=== PATIENT | male | born 1960 | race Caucasian/White ===

== ENCOUNTER 2019-06-19 09:26 | Day surgery (SDC) | payer OTHER, SELFPAY ==
[2019-06-15 13:14] VITALS: BMI 33.4
[2019-06-19] VITALS (8 sets, daily range): BP systolic 101–151; BP diastolic 64–87; PULSE 74–78; RESP 12–14; TEMP 36.9–37.2; O2SAT 92–97; BMI 31.6
--- NOTE | 2019-06-19 | DI.RAD.S_ITS ---
PROCEDURE: XR LUMBAR SPINE 2-3V INDICATIONS: L4-5 DISCECTOMY TECHNIQUE: 2 intraoperative fluoroscopic views of the lumbar spine were acquired. COMPARISON: None. FINDINGS: Intraoperative fluoroscopic images of the lower lumbar spine shows surgical instrument placed posteriorly at L4-5 level. IMPRESSION: Fluoroscopy guidance was provided intraoperatively for L4-5 discectomy. Dictated by: Bret Velazquez M.D. on 06/19/2019 at 16:56 Approved by: Bret Velazquez M.D. on 06/19/2019 at 17:00
--- NOTE | 2019-06-19 12:05 | PM.PREOP ---
Pre-operative Note Interval Note History & Physical reviewed/Exam performed by Physician: Yes Changes to H&P: No
--- NOTE | 2019-06-19 12:05 | PM.HP.1 ---
History of Present Illness Date Patient Seen: 06/19/19 Time Patient Seen: 12:06 Chief complaint: [id number] Narrative: 58-year-old male with severe back and left leg pain. Symptoms started in January when he was unloading some wood and have been increasing since. Pain became excruciating about 4-6 weeks ago. He is only able to lay down on his right side. The back pain is worse at rest but whenever he tries to stand the leg pain is severe. He has been managing this with Percocet and Valium and Flexeril. He had originally been scheduled for surgery a few weeks ago but his BUN and creatinine had doubled and his blood pressure medication was changed and it returned back to normal. He does have a history of a L5-S1 laminectomy and fusion when he was 18. Patient History Medical History Arthritis (Acute) Chronic kidney disease (Acute) Concussion (Acute) Diabetes (Acute) GERD (gastroesophageal reflux disease) (Acute) Gout (Acute) HLD (hyperlipidemia) (Acute) HTN (hypertension) (Acute) Sciatica (Acute) Sleep apnea (Acute) Surgical History History of lumbar laminectomy (Acute ~1978) Hx of cholecystectomy (Acute ~2013) Hx of tonsillectomy (Acute) Social History household members: spouse Smoking Status: Unknown if ever smoked Family & Social History Social History: household members spouse Tobacco & Substance use: Smoking Status Unknown if ever smoked Substance Use Type does not use Meds Home Medications Medication Instructions Recorded Confirmed Type allopurinol 300 mg PO DAILY 06/15/19 06/19/19 History aspirin 81 mg PO DAILY 06/15/19 06/19/19 History atenolol 50 mg PO DAILY 06/15/19 06/19/19 History cyclobenzaprine 10 mg PO TID PRN 06/15/19 06/19/19 History furosemide 20 mg PO DAILY 06/15/19 06/19/19 History gabapentin [Neurontin] 900 mg PO TID 06/15/19 06/19/19 History glimepiride 2 mg PO QPM 06/15/19 06/19/19 History wmrifb-iwvakipr-bqslwdd [Zenpep] 1 cap PO TID 06/15/19 06/19/19 History lisinopril 5 mg PO DAILY 06/15/19 06/19/19 History metformin 1,000 mg PO BID 06/15/19 06/19/19 History omeprazole 20 mg PO BID 06/15/19 06/19/19 History semaglutide [Ozempic] 1 mg SUBCUT QWEEK 06/15/19 06/19/19 History simvastatin 10 mg PO QPM 06/15/19 06/19/19 History colchicine [Colcrys] 0.6 mg PO DAILY PRN 06/19/19 06/19/19 History diazepam 5 mg PO BEDTIME 06/19/19 06/19/19 History loperamide-simethicone [Imodium 2 tab PO BID 06/19/19 06/19/19 History Multi-Symptom Relief] uzouhtigdqdf-rdvj-kpfnh acid 1 tab PO DAILY 06/19/19 06/19/19 History [Multi-Day with Iron] oxycodone-acetaminophen [Percocet] 1 tab PO Q4-6H PRN 06/19/19 06/19/19 History turmeric root extract 500 mg PO DAILY 06/19/19 06/19/19 History Allergies Allergy/AdvReac Type Severity Reaction Status Date / Time No Known Drug Allergies Allergy Verified 06/15/19 13:21 Review of Systems Cardiovascular Cardiovascular: Denies chest pain Respiratory Respiratory: Denies cough Exam Vital Signs (past 8 hours): - 06/19/19 10:31 Temperature 98.4 F Pulse Rate 75 Respiratory Rate 12 Blood Pressure 151/87 H Pulse Oximetry 93 Oxygen Delivery Method Room Air Const Orientation: alert and oriented x3 Resp Auscultation: clear to auscultation bilaterally Cardio Rate: regular rate Rhythm: regular rhythm Back/Spine/Pelvis Other: 5/5 motor both lower extremities except for 4/5 left anterior tibialis and EHL. Decreased sensation left posterolateral leg to foot. Positive straight leg raise maneuver on the left. Tender left PSIS and gluteals. Objective Imaging Lumbar MRI: My impression: Lumbar MRI from 04/25/2019 shows an annular tear at L3-4. L4-5, large left-sided disc protrusion with displacement of the L5 and S1 nerve roots. Moderate bilateral foraminal narrowing. Previous laminectomy with fusion at L5-S1, no neural compression. Assessment & Plan Assessment & Plan narrative: Left-sided L4-5 disc herniation We are going to go ahead with a left L4-5 diskectomy. Risks and benefits were again discussed. All questions were answered.
[2019-06-19] MEDS: LACTATED RINGERS 1,000 ML 42 ML IV ×2 (12:45→15:35)
--- NOTE | 2019-06-19 12:56 | P.OP_ITS ---
Operative Date/Time/Diagnoses Date of procedure: 06/19/19 Time of procedure: 15:30 Pre-op diagnosis: Lumbar disc herniation with radiculopathy History lumbar laminectomy Post-op diagnosis: same Procedure & Clinicians Procedure: Revision left-sided L4-5 diskectomy Use of microscope Placement of epidural catheter Same procedure as scheduled: Yes Indications: [age] year old male with intractable pain from a lumbar disc herniation. They had failed conservative management and requested operative intervention. Risks and benefits of surgery were discussed and appropriate consents were obtained. Surgeon: Narayan Hoskins Brazing Machine Operator Automatic: Lelo Call Anesthesia Type: General Operative Notes Findings: None Closure Type: primary Specimen(s): none sent Estimated Blood Loss (mL): 10 Procedure in detail: Patient was brought to the operating room and intubated on the table. A time-out was performed. There were rolled over the well-padded prone position on the Eric table. The back was prepped and draped in standard sterile fashion. Preoperative antibiotics were given. Using fluoroscopy, a 3 cm incision was made to the well-marked left of the midline at the L4-5 level. We used Bovie to come down to and split the fascia. We then used the NuVasive MaXcess dilators with fluoroscopy and then opened our retractors. The soft tissue was cleared off with Bovie. There was large amount of scar here and as we gradually dissected through it we came down to a previous left-sided hemilaminotomy site, where I initially been expecting untouched tissue. At this point we realized it would be a revision diskectomy, not a primary. We had to do extensive dissection to expose this area. A marker was placed, an x-ray was taken to confirm positioning. We then brought in the microscope. A combination of high-speed bur and Kerrison were used to perform a revision left-sided hemilaminotomy and hemifacetectomy. We took the laminotomy cephalad until we came down to more normal appearing tissue consistent with dura. We then had to do extensive dissection working distally to try to free up the scarred in dura away from the edge of the previous laminotomy. We then had a peel back the scar tissue carefully off the dura. We finally were able to isolate the traversing nerve root. With more work we were able to gradually free it up and expose the disc underneath. A scalpel used to perform an annulotomy and a pituitary was used to remove a large 1.5 x 1 cm chunk of disc material. The ball probe was run underneath the dura and around the disc and into the disc to free up a few more small fragments. In the end everything was free. Once everything was adequately decompressed, the wound was copiously irrigated. An epidural catheter was filled with 100 mcg of fentanyl and 8 mL of 0.25% Marcaine. The dura was carefully depressed under the laminotomy site and the catheter was advanced 6 cm cephalad. The retractor was removed and the fascia was closed. The epidural catheter was then injected without resistance and removed. Vancomycin powder was placed in the wound. Superficial and skin were closed. Sterile dressing was placed. The patient was then rolled over, transferred to the stretcher, and brought to recovery room without complications. Complications: none Condition: stable Disposition: PACU Plan for aftercare: Outpatient. Limited activity 2 weeks and start physical therapy.
[2019-06-19] MEDS: CEFAZOLIN 2 GM/100 ML FROZ.PIGGY IV (13:16)
--- NOTE | 2019-06-19 13:49 | SUR.OPER ---
Prone on spine table, head in foam head support, padded chest and pelvic supports, gel pad at knees, lower legs supported by pillows; nipples, genitalia and toes free of pressure, arms secured on foam padded arm boards at <90 degrees abduction. Tape over blanket at thigh secured to table.
[2019-06-19] MEDS: BUPIVACAINE 0.25% (PF) 8 ML, fentaNYL 100 MCG INJ (13:56)
[2019-06-19] MEDS: SODIUM CHLORIDE 0.9% 1,000 ML, GENTAMICIN 80 MG IRR (13:56)
[2019-06-19] MEDS: THROMBIN (RECOMBINANT) 5,000 UNIT VIAL 5000 UNIT TOP (13:57)
[2019-06-19] MEDS: OXYCODONE IR 5 MG TABLET PO (16:25)
--- NOTE | 2019-06-19 17:30 | SUR.PHASEII ---
1700 Report received pt was ready for discharge if able to stand. Pt dressed with assistance from spouse and stood, sba, without difficulty. Pt discharged.
--- NOTE | 2019-06-19 17:31 | SUR.PHASEII ---
IV had been discontinued upon receiving patient.
== END 2019-06-19 17:06 | disposition home or self-care (01) ==
PROVIDERS: PCP Family Medicine; Visit Provider Orthopaedic Surgery
PROC: (CPT 63042; principal; 2019-06-19 12:20)
DX: M51.16 Intervertebral disc disorders with radiculopathy, lumbar region (principal); M79.605 Pain in left leg; E11.9 Type 2 diabetes mellitus without complications; I10 Essential (primary) hypertension; E78.5 Hyperlipidemia, unspecified; G47.30 Sleep apnea, unspecified; Z79.84 Long term (current) use of oral hypoglycemic drugs; Z98.890 Other specified postprocedural states
CPT/HCPCS: 63042; 72100; 76000; J0330; J0690; J1100; J2250; J2405; J2704; J3010